=== PATIENT | female | born 1975 | race Two or more races ===

== ENCOUNTER 2022-03-28 15:27 | Emergency (ER) | payer BC ==
[~2022-03-28] VITALS: Ht 165.1 cm; Wt 108.9 kg
[2022-03-28 15:35] VITALS: BP 156/91
== END 2022-03-28 17:59 | disposition home or self-care (01) ==
LOC: ER 15:31
DX: S16.1XXA Strain of muscle, fascia and tendon at neck level, initial encounter (principal); S39.012A Strain of muscle, fascia and tendon of lower back, initial encounter; S40.022A Contusion of left upper arm, initial encounter; I10 Essential (primary) hypertension; Z90.711 Acquired absence of uterus with remaining cervical stump; V49.9XXA Car occupant (driver) (passenger) injured in unspecified traffic accident, initial encounter; Y93.89 Activity, other specified; Y92.89 Other specified places as the place of occurrence of the external cause; Y99.8 Other external cause status
CPT/HCPCS: 70450-TC; 72125-TC; 72131-TC